=== PATIENT | female | born 1970 | race Caucasian/White ===

== ENCOUNTER 2017-11-29 09:17 | Inpatient (IN) | payer BC ==
[2017-11-20 15:19] VITALS: BMI 37.0
--- NOTE | 2017-11-20 16:01 | PAT Medication Instructions ---
Service Date Nov 20, 2017. Current Home Medication List Albuterol Hfa (Ventolin Hfa), Unknown Dose INH UD Budesonide/Formoterol Fumarate (Symbicort 160/4.5 Inhaler ), 2 PUFFS INH BID Ferrous Sulfate (Iron), Unknown Dose PO QAM Metronidazole (Flagyl), 500 MG PO BID Rizatriptan Benzoate (Maxalt), 10 MG PO UD PRN for headaches Medication Instructions For Your Scheduled Surgery - Continue as directed: Metronidazole (Flagyl), 500 MG PO BID - Hold the following medications the morning of surgery: Ferrous Sulfate (Iron), Unknown Dose PO QAM - Take the following medications the morning of surgery with a sip of water: Albuterol Hfa (Ventolin Hfa), Unknown Dose INH UD (if needed, and bring it with you to the hospital) Budesonide/Formoterol Fumarate (Symbicort 160/4.5 Inhaler ), 2 PUFFS INH BID Rizatriptan Benzoate (Maxalt), 10 MG PO UD PRN for headaches (if needed) - Take the following medications as scheduled the night before surgery: Albuterol Hfa (Ventolin Hfa), Unknown Dose INH UD (if needed) Budesonide/Formoterol Fumarate (Symbicort 160/4.5 Inhaler ), 2 PUFFS INH BID Rizatriptan Benzoate (Maxalt), 10 MG PO UD PRN for headaches (if needed) If you have any questions please call us at [phone] or [phone] or [phone]
[2017-11-20 16:36] LABS: BASO % 0.4 %; BASO ABS # 0.04 K/uL (0-0.2); EOS % 3.9 %; EOS ABS # 0.36 K/uL (0-0.5); HEMATOCRIT 37.5 % (37-47); HEMOGLOBIN 12.6 g/dL (12.0-16.0); IG# 0.02 K/uL (0.00-0.02); LYMPH % 34.4 %; MEAN CELL VOLUME 84.8 fL (80-100); MEAN CORPUSCULAR HEMOGLOBIN 28.5 pg (25-34); MEAN CORPUSCULAR HGB CONC 33.6 g/dl (32-36); MEAN PLATELET VOLUME 10.1 fL (7.4-10.4); MONO % 7.4 %; MONO ABS # 0.69 K/uL (0.11-0.59); NEUT % 53.7 %; PLATELET COUNT 208 K/uL (130-400); RED CELL DISTRIBUTION WIDTH CV 15.8 % (11.5-14.5); RED CELL DISTRIBUTION WIDTH SD 48.8 fL (36.4-46.3); WHITE BLOOD COUNT 9.31 K/uL (4.8-10.8)
--- NOTE | 2017-11-20 17:18 | DIAGNOSTIC IMAGING REPORT ---
TWO VIEW CHEST CLINICAL HISTORY: Preoperative examination. FINDINGS: PA and lateral chest radiographs are obtained. No prior studies are available for comparison at the time of dictation. The cardiomediastinal silhouette is unremarkable. The lungs and pleural spaces are clear. There is no pneumothorax. The bony thorax appears intact. IMPRESSION: No active disease in the chest. Electronically signed by: Kit Welch M.D. 11/20/2017 5:17 PM Dictated Date/Time: 11/20/2017 5:16 PM
[~2017-11-29] VITALS: Ht 167.6 cm; Wt 103.4 kg
[2017-11-29] VITALS (7 sets, daily range): BP systolic 94–125; BP diastolic 63–78; PULSE 76–95; TEMP 36.6–37; O2SAT 92–97; Ht 167.6 cm; Wt 103.4 kg
[~2017-11-29 09:17] MED LIST: CLINDAMYCIN 600 MG/54 ML D5W 50 ML IV SCH; FERR1TAB61 PO; GENTAMICIN INJ 160 MG in DEXTROSE 5% 100ML 100 ML IV SCH; LACTATED RINGER'S 1000ML 1,000 ML IV SCH; METR-163 PO; RIZA10TA18 PO; SYMIN160 INH; VNTHFA/IN INH
[2017-11-29] MEDS ORDERED: GLYCOPYRROLATE INJ 0.2 MG/ML VIAL ONE ×2 (10:18→12:41)
[2017-11-29] MEDS ORDERED: FENTANYL CITRATE INJ 50 MCG/1 ML 2 ML VIAL ONE (10:18)
[2017-11-29] MEDS ORDERED: MIDAZOLAM HCL 1 MG/ML 2ML VIAL ONE (10:18)
[2017-11-29] MEDS ORDERED: NEOSTIGMINE METHYLSULFATE 5 MG/5 ML SYR ONE (10:18)
[2017-11-29] MEDS ORDERED: LIDOCAINE HCL 2% 2 ML VIAL (20MG/ML) ONE (10:18)
[2017-11-29] MEDS ORDERED: ONDANSETRON INJ 2 MG/ML 2 ML VIAL ONE ×2 (10:18→14:06)
[2017-11-29] MEDS ORDERED: PROPOFOL IV EMULSION 10 MG/ML 20 ML VIAL IV ONE (10:18)
[2017-11-29] MEDS ORDERED: DEXAMETHASONE SOD INJ 4 MG/ML VIAL ONE (10:18)
[2017-11-29] MEDS ORDERED: ROCURONIUM BROMIDE 10 MG/ML 5 ML VIAL IV ONE ×2 (10:21→13:16)
[2017-11-29] MEDS ORDERED: HYDROmorphone INJ 2 MG/ML SYR/VIAL ONE (10:25)
[2017-11-29] MEDS ORDERED: ATROPINE SULFATE 0.1 MG/ML 5ML SYR IV PRN (10:45)
[2017-11-29] MEDS ORDERED: ONDANSETRON INJ 2 MG/ML 2 ML VIAL IV PRN ×2 (10:45→15:00)
[2017-11-29] MEDS ORDERED: PROMETHAZINE HCL INJ 6.25 MG in SODIUM CHLORIDE 0.9% 50ML 50 ML IV PRN (10:45)
[2017-11-29] MEDS ORDERED: EpHEDrine SULFATE INJ 50 MG/ML AMP IV PRN (10:45)
[2017-11-29] MEDS ORDERED: HYDROmorphone INJ 1 MG/ML SYR IV PRN (10:45)
--- NOTE | 2017-11-29 11:17 | History & Physical Bridge Note ---
H&P Re-Evaluation Bridge Note: I have examined the patient, reviewed the History & Physical and in the interval since the performance of the History & Physical I have noted the following changes of clinical significance: No changes noted
[2017-11-29] MEDS ORDERED: BUPIVACAINE 0.5 % 5 MG/1 ML MPF 30ML VIAL ONE ×2 (11:39→14:31)
[2017-11-29] MEDS ORDERED: MINERAL OIL LIGHT 10 ML BTL ONE (11:39)
[2017-11-29] MEDS ORDERED: METHYLENE BLUE 0.5% 10 ML VIAL ONE (11:39)
[2017-11-29] MEDS ORDERED: EpHEDrine SULFATE 50MG/5ML SYR ONE (12:54)
[2017-11-29] MEDS ORDERED: LACTATED RINGER'S 1000ML 1,000 ML IV SCH (14:55)
--- NOTE | 2017-11-29 14:58 | [facility] Post Operative Brief Note ---
Immediate Operative Summary Operative Date Nov 29, 2017. Pre-Operative Diagnosis Menorrhagia with irregular cycle, Dysmenorrhea, Adenomyosis Post-Operative Diagnosis Same Procedure(s) Performed Evaluation Under Anesthesia, Total Laparoscopic Hysterectomy, Bilateral Salpingo-Oophorectomy, Excision of omental nodule/ cyst, Laparoscopic Sacrouterine suspension and Cystoscopy Surgeon Dr Valerio Product Accountant Surgeon(s) Dr Parker, Dr Ronquillo Estimated Blood Loss 100ML Findings Consistent with Post-Op Diagnosis Fluids (cc crystalloids) 2200 ml LR Specimens A.Uterus, cervix, bilateral fallopian tubes and ovaries B. Right omental cyst/nodule Drains rendon , 150 ml Anesthesia Type General Disposition Accompanied Pt To Recover: yes Disposition: Recovery Room / PACU
[2017-11-29] MEDS ORDERED: ACETAMINOPHEN 325 MG TAB PO PRN (15:00)
[2017-11-29] MEDS ORDERED: PROMETHAZINE HCL INJ 12.5 MG in SODIUM CHLORIDE 0.9% 50ML 50 ML IV PRN (15:00)
[2017-11-29] MEDS ORDERED: KETOROLAC TROMETHAMINE 30 MG/ML VIAL IV. PRN (15:00)
[2017-11-29] MEDS ORDERED: OXYCODONE/ACETAMINOPHEN 5-325 TAB PO PRN (15:00)
[2017-11-29] MEDS ORDERED: SIMETHICONE 80 MG CHEW PO PRN (15:00)
[2017-11-29] MEDS ORDERED: MAGNESIUM HYDROXIDE SUSP 30 ML UDC PO PRN (15:00)
[2017-11-29] MEDS ORDERED: BISACODYL 10 MG SUPP PR PRN (15:00)
[2017-11-29] MEDS ORDERED: MEPERIDINE HCL 50 MG/ML CARP IV PRN ×2 (15:00)
[2017-11-29] MEDS ORDERED: ALBUTEROL HFA 8 GM INHALER INH STA (15:32)
[2017-11-29] MEDS ORDERED: MTR600X PO (15:32)
[2017-11-29] MEDS ORDERED: OXYC-57 PO (15:32)
[2017-11-29] MEDS: FENTANYL CITRATE INJ 50 MCG/1 ML 2 ML VIAL IV PRN ×2 (15:45→15:51)
--- NOTE | 2017-11-29 16:38 | Anesthesiology Progress Note ---
Anesthesia Post Op Note Date & Time Nov 29, 2017 at 16:38 Vital Signs Pain Intensity: 0 Vital Signs Past 12 Hours Date Time Temp Pulse Resp B/P (MAP) Pulse Ox O2 Delivery O2 Flow Rate FiO2 11/29/17 16:20 36.4 63 14 110/65 97 Nasal Cannula 4 11/29/17 16:10 64 14 98/60 95 Nasal Cannula 4 11/29/17 16:00 64 14 102/60 94 Nasal Cannula 4 11/29/17 15:50 75 14 102/68 94 Nasal Cannula 4 11/29/17 15:40 72 14 103/62 93 Nasal Cannula 4 11/29/17 15:30 74 14 104/63 94 Nasal Cannula 4 11/29/17 15:20 88 14 105/69 94 Oxymask 10 11/29/17 15:10 36.4 90 14 118/71 94 Oxymask 10 11/29/17 10:00 36.7 90 18 125/78 (94) 94 Room Air Notes Mental Status: alert / awake / arousable, participated in evaluation Pt Amnestic to Procedure: Yes Nausea / Vomiting: adequately controlled Pain: adequately controlled Airway Patency, RR, SpO2: stable & adequate BP & HR: stable & adequate Hydration State: stable & adequate Anesthetic Complications: no major complications apparent
--- NOTE | 2017-11-29 17:25 | OB/GYN Progress Note ---
GOLF TECHNICIAN Progress Note Date of Service: Nov 29, 2017. Postop check Patient is seen and examined Feels well, no complaints Pain is under control with meds No CP/ SOB/ Dizziness/ N&V/ VB/ Leg pain Not OOB yet Tolerating clears Explained about the surgery and findings Date Time Temp Pulse Resp B/P (MAP) Pulse Ox O2 Delivery O2 Flow Rate FiO2 11/29/17 16:20 36.4 63 14 110/65 97 Nasal Cannula 4 11/29/17 16:10 64 14 98/60 95 Nasal Cannula 4 11/29/17 16:00 64 14 102/60 94 Nasal Cannula 4 11/29/17 15:50 75 14 102/68 94 Nasal Cannula 4 11/29/17 15:40 72 14 103/62 93 Nasal Cannula 4 11/29/17 15:30 74 14 104/63 94 Nasal Cannula 4 11/29/17 15:20 88 14 105/69 94 Oxymask 10 11/29/17 15:10 36.4 90 14 118/71 94 Oxymask 10 11/29/17 10:00 36.7 90 18 125/78 (94) 94 Room Air UOP 250 in PACU PE: General: Alert, orientedx3, NAD CVS: S1S2 RRR Lungs: CTAB Abd: soft, NT, ND, BS+, Incisions C/D/I No VB Ext: NT, no edema, SCD's on AP: 47 yo female s/p EUA, TLH, BSO, Cystoscopy, excision of omental nodule/ cyst? , pod#0 VSS Afebrile doing well Continue to routine postop care Encourage PO intake, may ambulate tonight D/C rendon in am or tonight if she desires Anticipate DC tomorrow
[2017-11-29] MEDS: DOCUSATE SODIUM 100 MG CAP PO SCH (20:57)
[2017-11-29 20:58] LABS: HEMOGLOBIN 13.2 g/dL (12.0-16.0)
[2017-11-29] MEDS: BUDESONIDE/FORMOTEROL FUMARATE 160/4.5 60 PUFFS/INHALER INH SCH (20:58)
[2017-11-29] MEDS ORDERED: CALCIUM CARBONATE 500 MG CHEWABLE PO PRN (23:15)
--- NOTE | 2017-11-29 23:17 | OPERATIVE REPORT ---
DATE OF OPERATION: 11/29/2017 PREOPERATIVE DIAGNOSES: The patient is a 47-year-old G2, P2-0-0-2 female with heavy periods, dysmenorrhea, adenomyosis. POSTOPERATIVE DIAGNOSES: The patient is a 47-year-old G2, P2-0-0-2 female with heavy periods, dysmenorrhea, adenomyosis. PROCEDURE: Examination under anesthesia, total laparoscopic hysterectomy, bilateral salpingo-oophorectomy, excision of omental nodule/cyst, Laparoscopic Sacrouterine ligament suspension and cystoscopy. SURGEON: Luis Parra MD SHEET FED PRINTER: Dr. Parker and Dr. Ronquillo. ESTIMATED BLOOD LOSS: 100 mL FLUIDS: 2200 mL of lactated ringer. DRAINS: Alvarez catheter drained 150 mL of clear urine. ANESTHESIA: General endotracheal, Dr. Herrera. SPECIMENS: Uterus, cervix, bilateral fallopian tubes and ovaries, and the omental cyst vs nodule. FINDINGS: Exam under anesthesia revealed anteverted 8-10 week size uterus, nonpalpable adnexa, and mild cystocele, stage I. Laparoscopic findings, globally enlarged uterus, normal fallopian tubes, and left ovary. There was a small exophytic cyst on the right ovary about 1 x 2 cm and there was a nodule versus cyst on the omentum about 2 x 2 cm. Rest of the omentum, bowels, and upper abdomen were normal. COMPLICATIONS: None. DESCRIPTION OF PROCEDURE: The patient was taken to the operating room where general anesthesia was given without difficulty. She was placed in dorsal lithotomy position, prepared and draped in usual sterile fashion. Exam under anesthesia was done with above findings and then a weighted speculum was placed in the patient's vagina. Cervix was visualized, grasped with single tooth tenaculum and uterus was sounded to be 9 cm and then a medium sized VCare manipulator was placed into the uterus and its balloon was inflated. Its green cap was attached to the cervix by sutures at 12 and 6 o'clock positions and the blue cap was fixed to the green cap providing a support over the cervix and manipulation during surgery. Then a Alvarez catheter was placed into the bladder and gloves were changed. Attention was turned to the patient's abdomen where an 12 mm periumbilical incision was made and the subcuticular fat tissue was dissected off with the tip of hemostat. The fascia was grasped with Avi clamps and elevated and then Veress needle was placed from fascia into the abdominal cavity and normal saline test was done. It was freely flowing in and then it was suctioned clear fluid and then CO2 gas was attached to the Veress needle. Pneumoperitoneum was obtained with the CO2 gas and the pressure was set to 15 mm Hg and then Veress needle was removed and with the optiscope, the trocar was entered from the umbilical incision under direct visualization. Upon entry into the abdomen, normal bowel surfaces and abdominal wall was noted and then under direct visualization 2 more trocars were placed on the right and left lower quadrants with 10 mm incisions and under direct visualization and the patient was placed in the Trendelenburg position and the uterus was brought to the midline by manipulator. Pictures were taken and findings as above. We started from the left adnexa, left infundibulopelvic ligament was identified, grasped with LigaSure device, coagulated x3 and cut and then the left round ligament was identified, grasped with LigaSure device, coagulated and cut. The broad ligament leaves were again coagulated and cut. An anterior leaf of broad ligament was incised and cut until the vesicouterine peritoneum and the bladder was dissected off from the lower uterine segment. Attention was turned to the right adnexa. Again, the right infundibulopelvic ligament was identified and coagulated x3 and cut with LigaSure device. The round ligament and then the pedicle was again coagulated x3 and cut and the broad ligament was also coagulated and cut. An anterior leaf of the broad ligament was continued towards the left side and the bladder was dissected off from the field. Then there noted to be filmy adhesion on the right adnexa from the omentum. It was dissected off gently with the tip of suction device. There was a small about 2x2 cm nodule vs cystic structure over the edge of the omentum. It was gently dissected off from omentum and removed and sent for pathology. It had no relation with bowel serosa. Then the uterine arteries were skeletonized and coagulated on both sides. The superior and inferior branches were coagulated multiple times and good hemostasis was achieved. Then the cardinal ligaments were coagulated and cut and the sacrouterine ligaments were coagulated and cut with the LigaSure device and the extra tissues around the vagina were dissected off bluntly as well as sharply with the LigaSure device. Then we were able to feel the edge of the cup of the VCare from vagina. Then with the tip of hook attached to the LigaSure device, the vaginal cuff was coagulated circumferentially around the cervix. The green cap of VCare was visible during this procedure. The vagina was incised completely around the cervix. Uterus was detached, it was delivered from the vagina without difficulty and a glove and sponge in it, was placed into the vagina to provide pneumoperitoneum during the rest of the surgery. The gloves were changed the attention was returned to the abdomen The pelvis and abdomen was irrigated with warm normal saline and suctioned. The vaginal cuff was sutured laparoscopically with the EndoStitch from one corner to the other corner bringing the vaginal mucosa and the cuff together. Excellent hemostasis was achieved. Sacrouterine ligaments were identified and they were held with an EndoStitch and the suture was started from the right side continued over the cuff and brought to the left sacrouterine ligament and it was tied laparoscopically with the Lapra-Ty to provide sacrouterine ligament suspension laparoscopically. The pelvis was hemostatic and then the peritoneum covering the pelvis was sutured with EndoStitch.The pictures were taken. The patient was given IV methylene blue for cystoscopy. Attention was turned to the perineum and cystoscopy was done and the bladder mucosa was visualized and bladder was found to be intact. No injuries were noted. Bladder mucosa was within normal limits and both ureters were visualized and ureteral jets were seen on both sides ejecting blue dyed urine bilaterally and then the cystoscopy was ended. The fluid was emptied from bladder and a new sterile catheter was placed into the bladder. Gloves were changed. Attention was turned to the patient's abdomen. Trocars were removed. The gas was emptied from abdomen. The fascial incisions were grasped with Avi clamps, elevated, and repaired with 0 Vicryl with [id number] stitches x2 on each incisions and the skin incisions were repaired with 4-0 Monocryl in a subcuticular fashion and the incisions were draped with pressure dressings. The patient tolerated the procedure well. Sponge, lap, needle, instrument count was correct x3. She was given gentamicin and clindamycin before surgery. She was taken to recovery room in stable condition. I attest to the content of the Intraoperative Record and any orders documented therein. Any exceptions are noted below. MTDD
--- NOTE | 2017-11-29 23:30 | OB/GYN Progress Note ---
BROACHER Progress Note Date of Service: Nov 29, 2017. Patient is reevaluated She feels well, pain is under control with meds, 10/26, s/p Toradol 5 hours ago Tolerating clears Desires Tums for GERD Desires Alvarez to stay in so that she can sleep VSS Afebrile UOP 475 ml in 5 hours H&H: Will dangle legs, start PO pain meds Continue to monitor closely All questions were answered She is very thankful
[2017-11-30 03:20] VITALS: BP 116/72; PULSE 90; TEMP 36.8; O2SAT 93
[2017-11-30] MEDS: BUDESONIDE/FORMOTEROL FUMARATE 160/4.5 60 PUFFS/INHALER INH SCH (06:14)
[2017-11-30] MEDS: IBUPROFEN 600 MG TAB PO PRN ×2 (06:24→10:50)
[2017-11-30] MEDS: OXYCODONE/ACETAMINOPHEN 5-325 TAB PO PRN ×2 (06:25→10:51)
[2017-11-30 06:48] LABS: HEMATOCRIT 35.8 % (37-47); HEMOGLOBIN 11.9 g/dL (12.0-16.0); IG# 0.04 K/uL (0.00-0.02); LYMPH % 8.4 %; MEAN CELL VOLUME 86.5 fL (80-100); MEAN CORPUSCULAR HEMOGLOBIN 28.7 pg (25-34); MEAN CORPUSCULAR HGB CONC 33.2 g/dl (32-36); MEAN PLATELET VOLUME 10.5 fL (7.4-10.4); MONO % 5.7 %; MONO ABS # 1.01 K/uL (0.11-0.59); NEUT % 85.7 %; NEUT ABS # 15.25 K/uL (1.4-6.5); PLATELET COUNT 241 K/uL (130-400); RED CELL DISTRIBUTION WIDTH CV 15.7 % (11.5-14.5)
[2017-11-30 07:17] LABS: CALCIUM 9.2 mg/dl (8.5-10.1); CREATININE 1.08 mg/dl (0.60-1.20); POTASSIUM 4.3 mmol/L (3.5-5.1)
[2017-11-30] MEDS: DOCUSATE SODIUM 100 MG CAP PO SCH (08:26)
--- NOTE | 2017-11-30 08:26 | OB/GYN Progress Note ---
ART PSYCHOTHERAPIST OR THERAPIST Progress Note Date of Service: Nov 30, 2017. Patient is seen and examined. She feels well, no complaints. Pain is under control with oral meds. Took 1 Percocet and Motrin this morning and pain is 2/10 Ambulating without dizziness Voided once without difficulty Tolerating clear diet and crackers with out N&V Flatus + BM neg Bleeding is minimal No fever/ chills/ CP/ SOB/ N&V/ Leg pain Date Time Temp Pulse Resp B/P (MAP) Pulse Ox O2 Delivery O2 Flow Rate FiO2 11/30/17 03:20 36.8 90 18 116/72 (87) 93 Room Air 11/29/17 23:10 37.0 87 18 110/73 (85) 93 Room Air 11/29/17 23:10 93 Room Air 11/29/17 19:40 36.8 95 16 102/70 (81) 95 Room Air 11/29/17 18:40 86 16 101/69 (80) 92 Room Air 11/29/17 17:40 89 16 109/78 (88) 94 Room Air 76 11/29/17 17:10 16 94/74 (81) 93 Nasal Cannula 2.0 11/29/17 16:40 36.6 89 16 112/63 (79) 97 Nasal Cannula 2.0 11/29/17 16:40 97 Nasal Cannula 2.0 11/29/17 16:40 97 Nasal Cannula 2.0 11/29/17 16:20 36.4 63 14 110/65 97 Nasal Cannula 4 11/29/17 16:10 64 14 98/60 95 Nasal Cannula 4 11/29/17 16:00 64 14 102/60 94 Nasal Cannula 4 11/29/17 15:50 75 14 102/68 94 Nasal Cannula 4 11/29/17 15:40 72 14 103/62 93 Nasal Cannula 4 11/29/17 15:30 74 14 104/63 94 Nasal Cannula 4 11/29/17 15:20 88 14 105/69 94 Oxymask 10 11/29/17 15:10 36.4 90 14 118/71 94 Oxymask 10 11/29/17 10:00 36.7 90 18 125/78 (94) 94 Room Air Date Time Temp Pulse Resp B/P (MAP) Pulse Ox O2 Delivery O2 Flow Rate FiO2 11/30/17 03:20 36.8 90 18 116/72 (87) 93 Room Air 11/29/17 23:10 37.0 87 18 110/73 (85) 93 Room Air 11/29/17 23:10 93 Room Air 11/29/17 19:40 36.8 95 16 102/70 (81) 95 Room Air 11/29/17 18:40 86 16 101/69 (80) 92 Room Air 11/29/17 17:40 89 16 109/78 (88) 94 Room Air 76 11/29/17 17:10 16 94/74 (81) 93 Nasal Cannula 2.0 11/29/17 16:40 36.6 89 16 112/63 (79) 97 Nasal Cannula 2.0 11/29/17 16:40 97 Nasal Cannula 2.0 11/29/17 16:40 97 Nasal Cannula 2.0 11/29/17 16:20 36.4 63 14 110/65 97 Nasal Cannula 4 11/29/17 16:10 64 14 98/60 95 Nasal Cannula 4 11/29/17 16:00 64 14 102/60 94 Nasal Cannula 4 11/29/17 15:50 75 14 102/68 94 Nasal Cannula 4 11/29/17 15:40 72 14 103/62 93 Nasal Cannula 4 11/29/17 15:30 74 14 104/63 94 Nasal Cannula 4 11/29/17 15:20 88 14 105/69 94 Oxymask 10 11/29/17 15:10 36.4 90 14 118/71 94 Oxymask 10 11/29/17 10:00 36.7 90 18 125/78 (94) 94 Room Air Last 24 Hours Test 11/29/17 10:21 11/29/17 20:42 11/30/17 06:25 Hemoglobin 13.2 g/dL 11.9 g/dL Hematocrit 41.0 % 35.8 % White Blood Count 17.80 K/uL Red Blood Count 4.14 M/uL Mean Corpuscular Volume 86.5 fL Mean Corpuscular Hemoglobin 28.7 pg Mean Corpuscular Hemoglobin Concent 33.2 g/dl Platelet Count 241 K/uL Mean Platelet Volume 10.5 fL Neutrophils (%) (Auto) 85.7 % Lymphocytes (%) (Auto) 8.4 % Monocytes (%) (Auto) 5.7 % Eosinophils (%) (Auto) 0.0 % Basophils (%) (Auto) 0.0 % Neutrophils # (Auto) 15.25 K/uL Lymphocytes # (Auto) 1.50 K/uL Monocytes # (Auto) 1.01 K/uL Eosinophils # (Auto) 0.00 K/uL Basophils # (Auto) 0.00 K/uL RDW Standard Deviation 50.0 fL RDW Coefficient of Variation 15.7 % Immature Granulocyte % (Auto) 0.2 % Immature Granulocyte # (Auto) 0.04 K/uL Sodium Level 137 mmol/L Potassium Level 4.3 mmol/L Chloride Level 107 mmol/L Carbon Dioxide Level 24 mmol/L Anion Gap 6.0 mmol/L Blood Urea Nitrogen 11 mg/dl Creatinine 1.08 mg/dl Est Creatinine Clear Calc Drug Dose 78.2 ml/min Estimated GFR () 70.8 Estimated GFR (Non- 61.1 BUN/Creatinine Ratio 9.7 Random Glucose 112 mg/dl Calcium Level 9.2 mg/dl PE: General: Alert, orientedx3, NAD CVS: S1S2 RRR Lungs; CTAB Abd: soft, NT, ND, BS+, Incisions: Clean, dry, intact Perineum intact, no VBl Ext; NT, no edema AP: 47 yo s/p EUA, TLH, BSO, Excision of omental cyst, Cystoscopy, pod# 1 VSS Afebrile doing very well clinically H&H stable WBCC elevated, but afebrile, most likely postop change Will recheck this afternoon Continue to monitor closely Encourage ambulation All questions were answered Possible D/C home if WBCC comes down
[2017-11-30 08:30] VITALS: BP 115/73; PULSE 73; TEMP 36.9; O2SAT 97
--- NOTE | 2017-11-30 08:30 | Discharge Instructions ---
Discharge Instructions Date of Service Nov 30, 2017. Admission Reason for Admission: Heavy Menstral Periods Discharge Discharge Diagnosis / Problem: Total Laparoscopic Hysterectomy, Bilateral salpingo-oophorectomy, cystoscop Discharge Goals Goal(s): Routine recovery after surgery Activity Recommendations Activity Limitations: as noted below Lifting Limitations: no more than 10 pounds Exercise/Sports Limitations: until after follow-up appointment May Resume Sexual Activity: after follow-up appointment Shower/Bathe: no limitations, keep incision dry Driving or Machine Use: after follow up SPECIAL CARE INSTRUCTIONS: * Check temperature twice daily for one week. Report any elevation over 100.3 degrees Fahrenheit (38.0 degrees Celsius). * Call office in the next few days for return appointment. * You may experience some vaginal spotting and/or bleeding, this is normal for one or two weeks and should not alarm you. * Post-operative discomfort may consist of a sore throat, a "bloated" feeling and pain in the shoulders. These are normal symptoms which usually only last for two or three days. FOLLOW UP VISIT: Keep any scheduled doctor appointments. . Current Hospital Diet Patient's current hospital diet: Regular Diet Discharge Diet Recommended Diet: Regular Diet Procedures Procedures Performed: Evaluation Under Anesthesia, Total Laparoscopic Hysterectomy, Bilateral Salpingo-Oophorectomy, Excision of omental nodule/ cyst, Laparoscopic Sacrouterine suspension and Cystoscopy Pending Studies Studies pending at discharge: no Work Instructions Return To Work: after follow-up Additional Instructions: Nothing per vagina for 6 weeks Medical Emergencies . Who to Call and When: Medical Emergencies: If at any time you feel your situation is an emergency, please call 911 immediately. . Non-Emergent Contact Non-Emergency issues call your: Surgeon, Specialist Call Non-Emergent contact if: you have a fever, temperature is above 100.5, your pain is not controlled, your pain is worsening, your pain is unusual for you, your pain is concerning you, wound has increased drainage, wound has increased redness, wound has increased pain, you have any medication questions . . "Provider Documentation" section prepared by Luis Parra. .
[2017-11-30 14:58] LABS: BASO % 0.1 %; BASO ABS # 0.01 K/uL (0-0.2); EOS % 0.3 %; EOS ABS # 0.04 K/uL (0-0.5); HEMATOCRIT 33.9 % (37-47); HEMOGLOBIN 11.1 g/dL (12.0-16.0); IG# 0.04 K/uL (0.00-0.02); LYMPH % 16.8 %; MEAN CORPUSCULAR HEMOGLOBIN 28.2 pg (25-34); MEAN CORPUSCULAR HGB CONC 32.7 g/dl (32-36); MEAN PLATELET VOLUME 9.7 fL (7.4-10.4); MONO % 6.8 %; MONO ABS # 0.93 K/uL (0.11-0.59); NEUT % 75.7 %; NEUT ABS # 10.41 K/uL (1.4-6.5); PLATELET COUNT 201 K/uL (130-400); RED CELL DISTRIBUTION WIDTH CV 15.8 % (11.5-14.5); RED CELL DISTRIBUTION WIDTH SD 50.6 fL (36.4-46.3); WHITE BLOOD COUNT 13.73 K/uL (4.8-10.8)
[2017-11-30 15:20] VITALS: BP 115/73; PULSE 73; TEMP 36.9; O2SAT 97
--- NOTE | 2017-12-03 21:00 | DISCHARGE SUMMARY ---
DETAILS OF ADMISSION: Patient is a 47-year-old G2, P0-0-0-2 female with a history of heavy and painful periods, adenomyosis. She was admitted for a scheduled total laparoscopic hysterectomy, bilateral salpingo-oophorectomy, possible laparotomy. She was admitted on the morning of 11/29/2017. She had scheduled surgery as well as excision of omental nodule versus cyst and laparoscopic sacrouterine ligament suspension and cystoscopy. No complications happened and see dictated op note for details. On the postop period, patient did well. Pain was under control with medications. Her vital signs were stable. She was afebrile. Her urine output was adequate. Her evening H&H was stable and she did well overnight. Her urine output was good. Alvarez was in until 5:40 a.m. in the morning and then it was discontinued. She ambulated. She used the bathroom in the morning. Her H&H was stable 11.9/35.8. Her white count was 17.8. She has been afebrile and no signs of infection was found. Her physical exam was unremarkable. Her abdomen was soft, nontender, nondistended. Bowel sounds present. She was passing gas, tolerating regular diet and she wanted to be discharged. Her blood count was repeated in the afternoon. Her white count decreased to 13. Her H&H was still stable and she wanted to go home. She was discharged home and instructions were given to call with any fever, chills, abdominal pain, unable to pass gas or move bowels or difficulty with urination or vaginal bleeding. She agreed with the plan and she was discharged with prescriptions for pain and all questions were answered. [email or web address]
== END 2017-11-30 15:45 | disposition home or self-care (01) | DRG 743 ==
LOC: C.ACU 09:17 → C.MS4N 15:02
PROVIDERS: ADMIT Obstetrics & Gynecology; ATTEND Obstetrics & Gynecology
PROC: 0TJB8ZZ Inspection of Bladder, Via Natural or Artificial Opening Endoscopic (ICD-10-PCS; principal; 2017-11-29 11:30)
PROC: 0UT94ZZ Resection of Uterus, Percutaneous Endoscopic Approach (ICD-10-PCS; principal; 2017-11-29 11:30)
PROC: 0US Female Reproductive System, Reposition (ICD-10-PCS; principal; 2017-11-29 11:30)
PROC: 0DBU4ZX Excision of Omentum, Percutaneous Endoscopic Approach, Diagnostic (ICD-10-PCS; principal; 2017-11-29 11:30)
PROC: 0UTC4ZZ Resection of Cervix, Percutaneous Endoscopic Approach (ICD-10-PCS; principal; 2017-11-29 11:30)
DX: N80.0 Endometriosis of uterus (principal); N92.1 Excessive and frequent menstruation with irregular cycle; K66.8 Other specified disorders of peritoneum; N94.6 Dysmenorrhea, unspecified; N81.10 Cystocele, unspecified; J44.9 Chronic obstructive pulmonary disease, unspecified; Z87.891 Personal history of nicotine dependence